=== PATIENT | male | born 1970 | race Two or more races ===

== ENCOUNTER 2022-12-29 04:08 | Day surgery (SDC) | payer OTHER ==
[2022-12-26 15:16] VITALS: BMI 28.1
[2022-12-29 10:18] VITALS: BP 132/94; PULSE 88; RESP 15
[2022-12-29 13:49] VITALS: TEMP 98
== END 2022-12-29 10:27 | disposition home or self-care (01) ==
LOC: JASU-ENDO 04:08
PROVIDERS: ATTEND Internal Medicine Gastroenterology
PROC: 0DBN8ZX Excision of Sigmoid Colon, Via Natural or Artificial Opening Endoscopic, Diagnostic (ICD-10-PCS; 2022-12-29)
PROC: 0DBM8ZX Excision of Descending Colon, Via Natural or Artificial Opening Endoscopic, Diagnostic (ICD-10-PCS; 2022-12-29)
PROC: 0DBH8ZX Excision of Cecum, Via Natural or Artificial Opening Endoscopic, Diagnostic (ICD-10-PCS; 2022-12-29)
PROC: 0DBK8ZX Excision of Ascending Colon, Via Natural or Artificial Opening Endoscopic, Diagnostic (ICD-10-PCS; principal; 2022-12-29 08:30)
DX: Z12.11 Encounter for screening for malignant neoplasm of colon (principal); D12.0 Benign neoplasm of cecum; D12.2 Benign neoplasm of ascending colon; D12.4 Benign neoplasm of descending colon; D12.5 Benign neoplasm of sigmoid colon
CPT/HCPCS: 88305-TC

== ENCOUNTER 2024-03-19 10:02 | Emergency (ER) | payer OTHER ==
[2024-03-19 10:18] VITALS: BP 147/88; PULSE 103; RESP 18; TEMP 98.7; BMI 25.8
[2024-03-19 12:48] LABS: BASO % 0.4 % (0-2.0); EOS % 0.9 % (0-4.5); HEMATOCRIT 47.8 % (35.4-49); HEMOGLOBIN 16.5 GM/dL (11.7-16.9); LYMPH % 26.8 % (8-40); MCH 29.7 pg (25.7-33.7); MCHC 34.5 g/dl (32.0-35.9); MEAN CELL VOLUME 86.2 fl (80-96); MEAN PLT VOLUME 7.9 fl (7.5-11.1); MONO % 17.9 % (3.8-10.2); PLATELET COUNT 196 10^3/uL (134-434); RBC 5.55 M/mm3 (4.00-5.60); RDW 14.3 % (11.9-15.9); WHITE BLOOD COUNT 4.1 K/mm3 (4.0-10.0)
[2024-03-19] MEDS: SODIUM CHLORIDE 0.9% 500 ML INFUS.BAG IV ONE (12:50)
[2024-03-19 13:47] LABS: POTASSIUM 5.3 mmol/L (3.5-5.1)
[2024-03-19 13:48] LABS: ALBUMIN 3.8 g/dl (3.4-5.0); CALCIUM 9.6 mg/dL (8.5-10.1)
[2024-03-19 13:49] LABS: BLOOD UREA NITROGEN 14.1 mg/dL (7-18)
[2024-03-19 13:51] LABS: CREATININE 1.3 mg/dL (0.55-1.3)
[2024-03-19 13:53] LABS: BILIRUBIN,TOTAL 0.5 mg/dL (0.2-1); TOT PROT 8.2 g/dl (6.4-8.2)
[2024-03-19] MEDS ORDERED: LOPERAMIDE HCL 2 MG CAPSULE ONE (14:43)
[2024-03-19] MEDS: LOPERAMIDE HCL 2 MG CAPSULE PO ONE (15:52)
== END 2024-03-19 14:49 | disposition home or self-care (01) ==
LOC: JER 10:02
DX: R19.7 Diarrhea, unspecified (principal); R10.10 Upper abdominal pain, unspecified
CPT/HCPCS: 36415; 80053; 83690; 83735; 85025; 99284-25